=== PATIENT | female | born 1970 | race Caucasian/White ===

== ENCOUNTER → 2023-07-12 08:04 | Outpatient (BNVA) | payer OTHER, SELFPAY | PROVIDERS: Visit Provider Physician Assistant Surgical ==

== ENCOUNTER 2023-07-19 08:30 | Outpatient (AMB) | payer OTHER, SELFPAY ==
--- NOTE | 2023-07-19 08:36 | MHC.OFFVISWM ---
Intake Intake Visit Reasons: (TV) [employer] BMI 32.0 Allergies cephalexin [From Keflex] Adverse Reaction (Intermediate, Verified 07/12/23 10:05) Rash latex Adverse Reaction (Mild, Verified 07/12/23 10:05) Rash Medication List - Last Reconciled 07/19/23 by Elvira Joseph PA-C calcium citrate-vitamin D3 315 mg-5 mcg (200 unit) (Calcium Citrate + D) 1 tab PO BID cholecalciferol (vitamin D3) 125 mcg PO DAILY cyanocobalamin (vitamin B-12) (Vitamin B-12) 1,000 mcg PO DAILY gabapentin 600 mg PO DAILY sertraline 200 mg PO DAILY HPI HPI Comments History of Present Illness Details This is a 52 year old woman who is s/p GBP 2011, pre surgery weight was 304 lbs and lowest weight was 152 lbs (BMI under 25). She has regained 50 lbs back, difficulty maintaing exercise routien. Her goal is to weigh 170. She reports first being concerned about her weight . She has tried multiple methods of weight loss including------- without permanent results. She lives with -------. She works ---days per week She wakes at: bed at Breakfast: Lunch: Dinner: After dinner: Other snacks: Liquids: Alcohol intake: tobacco: marijuana: Exercise: Last mammogram: Last pap smear: control method: KRYSTAL: ESS: GERD: QOL: PFSH Medical History (Updated 07/19/23 @ 08:40 by Elvira Joseph PA-C) Admission for initial breast implant insertion for breast augmentation Surgical History (Updated 07/19/23 @ 08:39 by Elvira Joseph PA-C) Hx of plastic surgery Hx of abdominoplasty Hx of colonoscopy Hx of cholecystectomy History of hysterectomy Hx of tonsillectomy Social History (Updated 07/18/23 @ 13:52 by Rosetta Franklin CMA) Alcohol intake: never Patient Tobacco Use Status: Never used Tobacco Assessment & Plan Assessment & Plan (1) Obesity: Code(s): E66.9 - Obesity, unspecified Plan: This is a yo woman with who will start SWL program to prepare for bariatric surgery. Blood work, h pylori , CXR, ECG, Abd ULS and UGI have been ordered. She is being scheduled for RD and BH initial consultations. She will start SWL classes and watch at 3 classes before her next appt with Ivet. 1. Adequate sleep of 7-8 hours per night discussed 2. Healthy meal plan - stop skipping meals and stop all sweetened drinks All meals/MR's need to take 20 minutes to complete 8am - protein shake with water or UAM 11 am - protein shake with water or UAM 1:30 pm- bar or yogurt 7 pm- dinner of 12 forks lean protein, 12 forks vegetable, 1 serving fruit Exercise - Cardio 4 d week = treadmill at speed 3.0, incline 3-5 - to burn 350 calories 3 d/ wk - circuit room 20/20/40 lbs The importance of avoiding and breast feeding for at least 18 months after bariatric surgery was discussed in the information session and was reinforced today. Pt will purchase body composition analyzer (recommended list given to patient) and weight herself weekly. Next appt with me in 3 weeks. Text me with any questions and weekly weights. Patient is morbidly obese and is not considered stable at this time.?I spent a total of 60 minutes reviewing/updating records, examining the patient and counseling the patient on weight management as detailed above. (2) Depression: Code(s): F32.A - Depression, unspecified (3) Gastric bypass status for obesity: Comment: February 2012, [facility] Code(s): Z98.84 - Bariatric surgery status (4) Cervical stenosis of spine: Code(s): M48.02 - Spinal stenosis, cervical region (5) Peripheral neuropathy: Code(s): G62.9 - Polyneuropathy, unspecified Coding Diagnoses Obesity E66.9 Depression F32.A Gastric bypass status for obesity Z98.84 Cervical stenosis of spine M48.02 Peripheral neuropathy G62.9
--- NOTE | 2023-07-19 08:46 | A.OFFVIS_ITS ---
Intake Intake Visit Reasons: (TV) [employer]PERVIS[employer] BMI 32.0 Allergies cephalexin [From Keflex] Adverse Reaction (Intermediate, Verified 07/12/23 10:05) Rash latex Adverse Reaction (Mild, Verified 07/12/23 10:05) Rash Medication List - Last Reconciled 07/19/23 by Elvira Joseph PA-C calcium citrate-vitamin D3 315 mg-5 mcg (200 unit) (Calcium Citrate + D) 1 tab PO BID cholecalciferol (vitamin D3) 125 mcg PO DAILY cyanocobalamin (vitamin B-12) (Vitamin B-12) 1,000 mcg PO DAILY estradiol 1 patch transdermal 2XW gabapentin 600 mg PO DAILY sertraline 200 mg PO DAILY HPI HPI Comments History of Present Illness Details This is a 52 year old woman who is s/p GBP in 2020. Her highest weight was 302 lbs, lowest weight was 152 lbs ( BMI less thatn 25). Has had about 50 lb regain, Goal is to weigh about 170 lbs. She went to [facility] for revision - due to insurance reasons could not have surgery. Completed 14 months of Phentermine and lost 18 lbs. Pt was diagnosed with anastomotic ulcer about 2 years after GBP due to ibuprofen use for migraines. Treated with EGD cauterization, PPI and sucralfate. No ulcer symptoms afterwards. She lives with her significant other, her father and her son. 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 She wakes at: 5am, bed at 8:30 falls asleep 9:30 pm. Breakfast: 5am coffee with stevia and heavy cream, 2 cups. 7:30 am - Oikos yogurt OR 2 eggs with ch eddar cheese. Lunch: skips lunch1 d/week. 12 pm - (2 cups) toni salad with balsamic vinaigrette with (1/2 c) cheese and 3-4 oz grilled chicken, salmon. Dinner: 7pm - 5 oz salmon, 4 oz (1/2 c)broccoli, may have 1/2 sweet potato. After dinner: no snacks Other snacks: Keto tortillas and PB Skippy (2 TBL) Liquids: ocassional soda, fruit juice diluted with water. Alcohol intake: 1 beer or glass of wine - 1d/ week, tobacco: none, marijuana: gummies for sleep Exercise: none, no membership. Has treadmill, stationary bike at home. Last used 9 months ago. Last mammogram: due in September Last pap smear: no more pap smears control method: not needed, is using estrogen hormone replacement patch KRYSTAL:6 ESS:6 GERD:0 QOL: 77 PFSH Medical History (Updated 07/19/23 @ 08:40 by Elvira Joseph PA-C) Admission for initial breast implant insertion for breast augmentation Surgical History (Updated 07/19/23 @ 08:39 by Elvira Joseph PA-C) Hx of plastic surgery Hx of abdominoplasty Hx of colonoscopy Hx of cholecystectomy History of hysterectomy Hx of tonsillectomy Social History (Updated 07/18/23 @ 13:52 by Rosetta Franklin [facility]) Alcohol intake: never Patient Tobacco Use Status: Never used Tobacco Assessment & Plan Assessment & Plan (1) Obesity: Code(s): E66.9 - Obesity, unspecified Plan: This is a 52 yo woman s/p GBP (anastomotic ulcer 2 years later- treated with cauterization) multipel plastic surgeries and obestiy who will start SWL program for possible revision. Blood work, h pylori , CXR, ECG, Abd ULS and UGI have been ordered. She is being scheduled for RD and DWIGHT initial consultations. She will start SWL classes and watch all classes before her next appt with Ivet. 1. Adequate sleep of 7-8 hours per night discussed 2. Healthy meal plan - stop skipping meals and stop all sweetened drinks All meals/MR's need to take 20 minutes to complete coffee - unsweetened almond milk 8am - protein shake with water or UAM 12 pm - protein shake with water or UAM 3 pm- bar 7 pm- dinner of 8 forks lean protein, 8 forks vegetable, 1/2 serving fruit Exercise - Cardio 4 d week = treadmill at speed 2.8, incline 2-6, (3 minutes) - to burn 350 calories . Goal 2,000 per week. Pt will purchase body composition analyzer (recommended list given to patient) and weight herself weekly. Next appt with Dr Campbell to review UGI/ULS and OR report for candidacy for revision. Text me with any questions and weekly weights this month.. Patient is obese and is not considered stable at this time.?I spent a total of 60 minutes reviewing/updating records, examining the patient and counseling the patient on weight management as detailed above. (2) Depression: Code(s): F32.A - Depression, unspecified (3) Gastric bypass status for obesity: Comment: February 2012, [facility] Code(s): Z98.84 - Bariatric surgery status (4) Cervical stenosis of spine: Code(s): M48.02 - Spinal stenosis, cervical region (5) Peripheral neuropathy: Code(s): G62.9 - Polyneuropathy, unspecified Plan see above Orders: Orders H Pylori Breath Test Today E66.9 - Obesity, unspecified, Z98.84 - Bariatric surgery status Lipid Panel Today E66.9 - Obesity, unspecified, Z98.84 - Bariatric surgery status Comprehensive Met. Panel Today E66.9 - Obesity, unspecified, Z98.84 - Bariatric surgery status Vitamin B1 Today E66.9 - Obesity, unspecified, Z98.84 - Bariatric surgery status Vitamin A Today E66.9 - Obesity, unspecified, Z98.84 - Bariatric surgery status TSH reflex Free T4 Today E66.9 - Obesity, unspecified, Z98.84 - Bariatric surgery status Vitamin D 25-OH Total Today E66.9 - Obesity, unspecified, Z98.84 - Bariatric surgery status US abdomen comp w elastography Today E66.9 - Obesity, unspecified, Z98.84 - Bariatric surgery status XR chest 2V Today E66.9 - Obesity, unspecified, Z98.84 - Bariatric surgery status Insulin Today E66.9 - Obesity, unspecified, Z98.84 - Bariatric surgery status Hemoglobin A1c Today E66.9 - Obesity, unspecified, Z98.84 - Bariatric surgery status Complete Blood Count Auto Diff Today E66.9 - Obesity, unspecified, Z98.84 - Bariatric surgery status IRON PROFILE Today E66.9 - Obesity, unspecified, Z98.84 - Bariatric surgery status Vitamin B12 and Folate Today E66.9 - Obesity, unspecified, Z98.84 - Bariatric surgery status Zinc Today E66.9 - Obesity, unspecified, Z98.84 - Bariatric surgery status C Reactive Protein Today E66.9 - Obesity, unspecified, Z98.84 - Bariatric surgery status Ferritin Today E66.9 - Obesity, unspecified, Z98.84 - Bariatric surgery status ECG 12 lead EKG Today E66.9 - Obesity, unspecified, Z98.84 - Bariatric surgery status FL upper GI w air Today E66.9 - Obesity, unspecified, Z98.84 - Bariatric surgery status Referrals Nutrition/Dietitian Referral E66.9 - Obesity, unspecified, Z98.84 - Bariatric surgery status Behavioral Health Referral E66.9 - Obesity, unspecified, Z98.84 - Bariatric surgery status Telehealth Telehealth Location of provider rendering services: practice address Location of patient: address on file Patient Identification confirmed using: Name, : Yes Telehealth method: video Patient verbally consented to treatment: Yes Patient verbally consented to billing insurance company: Yes Patient informed of any privacy concerns related to visit: Yes Coding Level of Care Code Tele [facility] Pt Level 5 (28037) Diagnoses Obesity E66.9 Depression F32.A Gastric bypass status for obesity Z98.84 Cervical stenosis of spine M48.02 Peripheral neuropathy G62.9
== END 2023-07-19 09:33 | disposition home or self-care (01) ==
LOC: HO.HBS 08:42
PROVIDERS: Visit Provider Physician Assistant
DX: E66.9 Obesity, unspecified (principal); Z68.32 Body mass index [BMI] 32.0-32.9, adult; Z98.84 Bariatric surgery status; M48.02 Spinal stenosis, cervical region
CPT/HCPCS: 99205

== ENCOUNTER → 2023-07-19 08:30 | Outpatient (BNVA) | payer OTHER, SELFPAY | PROVIDERS: Visit Provider Physician Assistant ==

== ENCOUNTER 2023-07-26 10:42 | Outpatient (AMB) | payer OTHER, SELFPAY ==
--- NOTE | 2023-07-26 10:56 | MHC.AMNUTRGE ---
Intake Intake Visit Reasons: (OV) Initial Nutrition SWL + H Pylori Allergies cephalexin [From Keflex] Adverse Reaction (Intermediate, Verified 07/12/23 10:05) Rash latex Adverse Reaction (Mild, Verified 07/12/23 10:05) Rash HPI Nutrition Presentation Details s/p GBP in 2011. Her highest weight was 302 lbs, lowest weight was 152 lbs ( BMI less thatn 25). Has had about 50 lb regain, Goal is to weigh about 170 lbs. She went to [facility] for revision - due to insurance reasons could not have surgery. Had some regain to 218, started phentermine, lowest with phentermine was 192, then stopped after a year and regain to 204#?. She lives with her significant other, her father and her son. 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 Her speciality is in substance abuse, and she works in weight management as well Reason for consult elevated BMI Diet Assmnt Details 8am Premier protein shake in the AM 12-1pm another shake 3-4pm protein bar , has a lot of keto bars 6-7pm protein, veg, minimal carbs doesn't tolerate carbs . Notes she never has felt hunger since the GBP but knows the importance of getting adequate nutrition . She experiences reactive hypoglycemia if she eats carbs without adequate protein. experiences dumping w high carb but seems to tolerate fat OK. She was unable to complete the HPylori test today to due intolerance to the beverage Hydration: adequate We had a long discussion about nutrition, reading labels, balancing out her nutrition, and reviewing various nutrition concepts Dietary counseling reduction Diagnosis Nutrition problem #1 overweight/obesity As related to (etiology) #1 excess energy intake and physical inactivity As evidenced by (sign/symptom) #1 high BMI Monitoring/Goals Nutrition problem monitoring total energy intake, level of knowledge/skill, total PRO intake, total CHO intake and weight Outcome progress progressing Learning/Education Readiness to learn excellent Stages of change action Educational materials provided Yes Most Recent Diabetes Results: No Data to Display [facility] Medical History (Updated 07/19/23 @ 08:40 by Elvira Joseph PA-C) Admission for initial breast implant insertion for breast augmentation Surgical History (Updated 07/19/23 @ 08:39 by Elvira Joseph PA-C) Hx of plastic surgery Hx of abdominoplasty Hx of colonoscopy Hx of cholecystectomy History of hysterectomy Hx of tonsillectomy Social History (Updated 07/18/23 @ 13:52 by Rosetta Franklin CMA) Alcohol intake: never Patient Tobacco Use Status: Never used Tobacco Assessment & Plan Assessment & Plan (1) Obesity (BMI 30-39.9): Code(s): E66.9 - Obesity, unspecified Plan pt is cleared from a nutrition standpoint for bariatric sugery . she will complete her online classes . she was unable to complete hpylori test today Coding Level of Care Code Nutr Indiv Intake (93061) Diagnoses Obesity (BMI 30-39.9) E66.9 Time Spent (min) 60
== END 2023-07-26 12:00 | disposition home or self-care (01) ==
PROVIDERS: Visit Provider Dietitian, Registered
DX: E66.9 Obesity, unspecified (principal)

== ENCOUNTER → 2023-07-26 10:42 | Outpatient (BNVA) | payer OTHER, SELFPAY | PROVIDERS: Visit Provider Surgery | DX: E66.9 Obesity, unspecified (principal); Z71.3 Dietary counseling and surveillance | CPT/HCPCS: 97802 ==

== ENCOUNTER 2023-08-01 12:59 | Outpatient (AMB) | payer OTHER, SELFPAY ==
--- NOTE | 2023-08-01 12:30 | A.OFFWM_ITS ---
Intake Intake Visit Reasons: VIDEO BH Intake Allergies cephalexin [From Keflex] Adverse Reaction (Intermediate, Verified 07/12/23 10:05) Rash latex Adverse Reaction (Mild, Verified 07/12/23 10:05) Rash [facility] Medical History (Updated 07/19/23 @ 08:40 by Elvira Joesph PA-C) Admission for initial breast implant insertion for breast augmentation Surgical History (Updated 07/19/23 @ 08:39 by Elvira Joseph PA-C) Hx of plastic surgery Hx of abdominoplasty Hx of colonoscopy Hx of cholecystectomy History of hysterectomy Hx of tonsillectomy Social History (Updated 07/18/23 @ 13:52 by Rosetta Franklin [facility]) Alcohol intake: never Patient Tobacco Use Status: Never used Tobacco Behavioral Health Assessment Weight Management Therapy Therapy Notes Details Pt is looking to have weight loss surgery revision. She is in therapy with Cristy Tejeda to help with work stress, family issues, loss of family members, father is now living with her. Pt has never been admitted to the hospital for psychiatric reasons and has no history of problems with drugs or alcohol. Presenting Concerns Referral Source provider Reason for referral weight loss surgery evaluation Precipitating Event obesity Living Situation At risk of losing current housing? No Satisfied with current living situation? Yes Comments Pt lives in her home with her fiance, her adult son, and her father. Food/Weight/Diet Expectations of change weight loss and maintenance History/Relationship with food love/hate relationship with food, does not eat when she is stressed, she reported that she loves History/Relationship with weight Pt stated that she has struggled with her weight all of her life. She had gastric bypass at age 40 due to health reasons and overeating. 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 Also her children were in travel hockey and they would be in hotel rooms and eat fast food. History/Relationship with dieting GBP in 2011. lowest was 152lbs. healthiest she looked was about 165lbs [facility] scheduled revision however due insurance reasons had to switch to this program. Binge Eating Do you frequently eat large amounts of food in short periods of time, not feeling physically hungry? No Do you feel out of control when you eat a large amount of food in a short period of time? No Do you eat large amounts of food rapidly and typically alone? No Night Eating Do you wake up at least once during the night to eat? No If you wake up in the night, do you find that it is necessary to eat something in order to fall back asleep? No Do you have little or no appetite in the morning and feel very hungry in the evening, often overeating between dinner and when you go to bed? No Social History Family history and relationship Patient is from 5 years ago. She has two sons , one lives back home now. 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 Employment Employment Status [employer] Wants help to find employment? No Meaningful activities crafting, hiking, kayaking, outdoor activities, would like to get back to walking. Financial Situation Describe current financial situation Comfortable Financial assistance? None Service Service? No Mental Health and Addiction Treatment Current/Past substance abuse? No Current/Past addictive behavior concerns? No Medical and Physical Health Summary Physical exam in the last year? Yes Pain Screening Current pain? Yes Pain in the last few months? No Medications Is the patient compliant with medications? Yes Does the patient have Galdamez Guardian in place? Not applicable Trauma/Abuse History History of trauma? Yes Questionnaires PHQ-9 Over the last 2 weeks, how often have you been bothered by any of the following problems? 1. Little interest or pleasure in doing things: not at all 2. Feeling down, depressed, or hopeless: not at all 3. Trouble falling or staying asleep, or sleeping too much: not at all 4. Feeling tired or having little energy: nearly every day 5. Poor appetite or overeating: not at all 6. Feeling bad about yourself - or that you are a failure or have let yourself or your family down: not at all 7. Trouble concentrating on things, such as reading the newspaper or watching television: not at all 8. Moving or speaking so slowly that other people could have noticed. Or the opposite - being so fidgety or restless that you have been moving around a lot more than usual: not at all 9. Thoughts that you would be better off or of hurting yourself in some way: not at all Total score: 3 Source: Developed by Drs. Dimitrios Mondragon, Yas Carmen, Matthew Pantoja and colleagues, with an educational judy from [employer]. Binge Eating Scale Group 1 A. I don't feel self-conscious about my wt. or body size when I'm with others. B. I feel concerned about how I look to others, but it normally does not make me fell disappointed with myself C. I do get self-conscious about my appearance and wt. which makes me feel disappointed in myself. D. I feel very self-conscious about my wt. and frequently I feel intense shame and disgust for myself. I try to avoid social contacts because of my self- consciousness. Response Group 1: C Group 2 A. I don't have any difficulty eating slowly in the proper manner. B. Although I seem to gobble down foods, I don't end up feeling stuffed because of eating to much. C. At times, I tend to eat quickly and then, I feel uncomfortably full afterwards. D. I have the habit of bolting down my food, without really chewing it. When this happens I usually feel uncomfortably stuffed because I've eaten to much. Response Group 2: C Group 3 A. I feel capable to control my eating urges when I want to. B. I feel like I have failed to control my eating more than the average person. C. I feel utterly helpless when it comes to feeling in control of my eating urges. D. Because I feel so helpless about controlling my eating I have become very desperate about trying to get control. Response Group 3: A Group 4 A. I don't have the habit of eating when I'm bored. B. I sometimes eat when I'm bored, but often I'm able to get busy and get my mind off food. C. I have a regular habit of eating when I'm bored, but occasionally, I can use some other activity to get my mind off eating. D. I have a strong habit of eating when I'm bored. Nothing seems to help me jina ath the habit. Response Group 4: A Group 5 A. I'm usually physically hungry when I eat something. B. Occasionally, I eat something on impulse even though I really am not hungry. C. I have the regular habit of eating foods, that I might not really enjoy, to satisfy a hungry feeling even though physically, I don't need the food. D. Although I'm not physically hungry, I get a hungry feeling in my mouth that only seems to be satisfied when I eat a food, like sandwich, that fills my mouth. Sometimes, when I eat the food to satisfy my mouth hunger, I then spit the food out so I won't gain weight. Response Group 5: A Group 6 A. I don't feel any guilt or self-hate after I overeat. B. After I overeat, occasionally I feel guilt or self-hate. C. Almost all the time I experience strong guilt or self-hate after I overeat. Response Group 6: A Group 7 A. I don't lose total control of my eating when dieting even after periods when I overeat. B. Sometimes when I eat a forbidden food on a diet, I feel like I blew it and eat even more. C. Frequently, I have the habit of saying to myself, I've blown it now, why not go all the way, when I overeat on a diet. When that happens I eat more. D. I have a regular habit of starting a strict diets for myself but I break the diets by going on an eating binge. My life seems to be either a feast or famine. Response Group 7: A Group 8 A. I rarely eat so much food that I feel uncomfortably stuffed afterwards. B. Usually about once a month, I each such a quantity of food, I end up feeling very stuffed. C. I have regular periods during the month when I eat large amounts of food, either at mealtime or at snacks. D. I eat so much food that I regularly feel quite uncomfortable after eating and sometimes a bit nauseous. Response Group 8: A Group 9 A. My level of calorie intake does not go up very high or go down very low on a regular basis. B. Sometimes after I overeat, I will try to reduce my caloric intake to almost nothing to compensate for the excess calories I've eaten. C. I have a regular habit of overeating during the night. It seems that my routine is not to be hungry in the morning but overeat in the evening. D. In my adult years, I have had week-long periods where I practically starve myself. This follows periods when I overeat. It seems I live a life of either feast or famine. Response Group 9: A Group 10 A. I usually am able to stop eating when I want to. I know when enough is enough. B. Every so often, I experience a compulsion to eat which I can't seem to control. C. Frequently, I experience strong urges to eat which I seem unable to control, but at other times I can control my eating urges. D. I feel incapable of controlling urges to eat. I have a fear of not being able to stop eating voluntarily. Response Group 10: A Group 11 A. I don't have any problem stopping eating when I feel full. B. I usually can stop eating when I feel full but occasionally overeat leaving me feeling uncomfortably stuffed. C. I have a problem stopping eating once I start and usually I feel uncomfortably stuffed after I eat a meal. D. Because I have a problem not being able to stop eating when I want, I sometimes have to induce vomiting to relieve my stuffed feeling. Response Group 11: A Group 12 A. I seem to eat just as much when I'm with others, Family social gatherings as when I'm by myself. B. Sometimes, when I'm with other persons, I don't eat as much as I want to eat because I'm self-conscious about my eating. C. Frequently, I eat only a small amount of food when others are present, because I'm very embarrassed about my eating. D. I feel so ashamed about overeating that I pick times to overeat when I know no one will see me. I feel like a closet eater. Response Group 12: A Group 13 A. I eat three meals a day with only an occasional between meal snack. B. I eat 3 meals a day, but I also normally snack between meals. C. When I am snacking heavily, I get in the habit of skipping regular meals. D. There are regular periods when I seem to be continually eating, with no planned meals. Response Group 13: A Group 14 A. I don't think much about trying to control unwanted eating urges. B. At least some of the time, I feel my thoughts are pre-occupied with trying to control my eating urges. C. I feel that frequently I spend much time thinking about how much I ate or about trying not to eat anymore. D. It seems to me that most of my waking hours are pre-occupied by thoughts about eating or not eating. I feel like I'm constantly struggling not to eat. Response Group 14: A Group 15 A. I don't think about food a great deal. B. I have strong craving for food but they last only for brief periods of time. C. I have days when I can't seem to think about anything else but food. D. Most of my days seem to be pre-occupied with thoughts about food. I feel like I live to eat. Response Group 15: A Group 16 A. I usually know whether or not I'm physically hungry. I take the right portion of food to satisfy me. B. Occasionally, I feel uncertain about knowing whether or not I'm physically hu ngry. A these times it's hard to know how much food I should take to satisfy me. C. Even though I might know how many calories I should eat, I don't have any idea what is a normal amount of food for me. Response Group 16: A Binge Eating Score: 4 Score less than 17 Minimal Risk Score between 18-26 Moderate Risk Score between 27-46 High Risk Assessment & Plan Assessment & Plan (1) Depression: Code(s): F32.A - Depression, unspecified (2) Gastric bypass status for obesity: Comment: February 2012, [facility] Code(s): Z98.84 - Bariatric surgery status (3) Obesity: Code(s): E66.9 - Obesity, unspecified Plan Patient does not have any serious barriers or mental health issues. She is cleared for surgery when ready. Telehealth Telehealth Location of provider rendering services: other Location of patient: other Patient Identification confirmed using: Name, : Yes Telehealth method: voice only Patient verbally consented to treatment: Yes Patient verbally consented to billing insurance company: Yes Patient informed of any privacy concerns related to visit: Yes Minutes spent on Phone/Video with Pt.: 45 Coding Level of Care Code Tele Psy Diag Eval (87816) Diagnoses Depression F32.A Gastric bypass status for obesity Z98.84 Obesity E66.9 Time Spent (min) 45
== END 2023-08-01 13:14 | disposition home or self-care (01) ==
LOC: HO.HBST 12:59
PROVIDERS: PCP Nurse Practitioner Pediatrics; Visit Provider Counselor Mental Health
DX: F32.A Depression, unspecified (principal); Z98.84 Bariatric surgery status; E66.9 Obesity, unspecified
CPT/HCPCS: 90791

== ENCOUNTER → 2023-08-01 12:59 | Outpatient (BNVA) | payer OTHER, SELFPAY | PROVIDERS: PCP Nurse Practitioner Pediatrics; Visit Provider Counselor Mental Health ==

== ENCOUNTER 2023-08-08 07:48 | Day surgery (SDC) | payer OTHER, SELFPAY ==
[2023-08-08 10:57] VITALS: BMI 32.0
--- NOTE | 2023-08-08 11:05 | HO.ANESPROP2 ---
[facility] Active Problems Active Problems: All Active Problems (Updated 07/19/23 @ 08:40 by Elvira Joseph PA-C) Peripheral neuropathy (Acute) Cervical stenosis of spine (Acute) Gastric bypass status for obesity (Acute) Depression (Acute) Obesity (Acute) Past Medical History Medical History (Updated 07/19/23 @ 08:40 by Elvira Joseph PA-C) Admission for initial breast implant insertion for breast augmentation Family History Family history of problems with anesthesia: No Surgical History Surgical History (Updated 07/19/23 @ 08:39 by Elvira Joseph PA-C) Hx of plastic surgery Hx of abdominoplasty Hx of colonoscopy Hx of cholecystectomy History of hysterectomy Hx of tonsillectomy History of Problems with Anesthesia: No Social History Social History (Updated 07/18/23 @ 13:52 by Rosetta Franklin CMA) Alcohol intake: never Patient Tobacco Use Status: Never used Tobacco Meds Allergies Allergy/AdvReac Type Severity Reaction Status Date / Time cephalexin [From Keflex] AdvReac Intermediate Rash Verified 07/12/23 10:05 latex AdvReac Mild Rash Verified 07/12/23 10:05 Active Medications: Current Medications Lactated Ringer's (Lr) 1,000 mls @ 80 mls/hr IVCONT .[id number] [facility] Home Medications Medication Instructions Recorded Confirmed Last Taken Type cholecalciferol (vitamin D3) 125 125 mcg PO DAILY 07/12/23 07/19/23 Unknown History mcg (5,000 unit) capsule cyanocobalamin (vitamin B-12) 1,000 mcg PO DAILY 07/12/23 07/19/23 Unknown History 1,000 mcg tablet (Vitamin B-12) gabapentin 600 mg tablet 600 mg PO DAILY 07/12/23 07/19/23 Unknown History sertraline 200 mg capsule 200 mg PO DAILY 07/12/23 07/19/23 Unknown History calcium citrate 315 mg-vitamin D3 1 tab PO BID 07/19/23 07/19/23 Unknown History 5 mcg (200 unit) tablet (Calcium Citrate + D) estradiol 0.025 mg/24 hr 1 patch transdermal 2XW 07/19/23 07/19/23 Unknown History semiweekly transdermal patch Exam Height,Weight and Vital Signs: Height 5 ft 7 in Weight 92.646 kg Airway Mallampati Class: II TM Dist: >3cm Neck ROM: Full Heart: rrr Lungs: cta Assessment and Plan Assessment Anesthesia Assessment: Anesthesia Plan Discussed and Chart Reviewed Final Anesthetic Review Family History of Problems with Anesthesia: No History of Problems with Anesthesia: No NPO: Yes ASA Class: II Final Preanesthetic Review: No Changes in Pt Med Stat, Meds/Allgs Chart Reviewed and Consent Obtained/Reviewed Patient Risk: Low Procedure Risk: Intermediate Anesthetic Plan Anesthetic Plan: MAC: Disposition: Standard PACU
[2023-08-08 11:08] VITALS: BP 111/64; PULSE 67; RESP 16; TEMP 36; O2SAT 99
[2023-08-08] MEDS: Lactated Ringers 1,000 ML 80 ML IVCONT (11:29)
--- NOTE | 2023-08-08 11:48 | PM.OP ---
Brief Operative Note Date of Service: 08/08/23 Pre-op diagnosis: Inadequate weight loss, post-gastric bypass anatomy Post-op diagnosis: same Procedure: PROCEDURE DATE: 08/08/2023 PREOPERATIVE DIAGNOSIS: Morbid obesity, s/p gastric bypass POSTOPERATIVE DIAGNOSIS: ?Same as above. 1) Large and redundant gastric pouch, 2) Candy cane gastro-jejunostomy, 3) small diaphragmatic hernia PROCEDURE: [id number] with biopsies Surgeon: ?Luis Enrique Barrios M.D.. Ph.D. Complaint Supervisor: ?None ? Anesthesia: IV sedation Estimated blood loss: ?Minimal FINDINGS AND PROCEDURE: ? OPERATIVE INDICATIONS: ?The patient is a 52 year old female known to me who underwent a laparoscopic gastric bypass elsewhere. The patient had inadequate weight loss so far.? Based on this information I recommended an upper endoscopy to evaluate the gastric bypass anatomy.?Risks and complications of the surgery were discussed with the patient in advance particularly the possibility of perforation or bleeding that may require surgical intervention. The patient understood the risks and was in agreement with the plan. ? PROCEDURE: After informed consent was obtained by the patient, the patient was ?transferred to the Operating Room and was placed in the supine position.? After successful induction of IV sedation, a mouth block was placed and the patient was placed in the left lateral decubitus position. An upper endoscopy was performed next, the oropharynx and esophagus appeared within the normal limits. There was a 3-4cm hiatal hernia.? The z-line was smooth. Two biopsies were obtained from the distal esophagus 2-3 cm proximal to the GE junction and two biopsies from the GE junction. The gastric pouch was entered. It was significantly enlarged with lateral redundancy. In fact, it's size permitted retroflexion of the scope which normally is not possible after gastric bypass. There was no gastritis and the gastrojejunostomy was patent. A biopsy was obtained from the gastric pouch. No significant bleeding was noted from any of the biopsy sites. There was no anastomotic ulcer.? At that point the scope was advanced into the proximal small intestine (proximal Romain limb) up to 60cm from incisors which appeared to be normal as well. The patient also had an elongated blind end of the Romain limb neasuring between 3-4cm in length. The Romain limb and the pouch were decompressed and the scope was withdrawn from the patient's mouth. The patient was awaken and was transferred in stable condition to the Recovery Room for further care. I was present and performed all steps of the procedure. There were no residents to assist with this case. Luis Enrique Barrios M.D., Ph.D. Surgeon: Sav Barrios MD Anesthesia: MAC Was an Complaint Supervisor used for this Procedure?: No Estimated blood loss (mL): 0 IV fluids (mL): 400 Urine output (mL): 0 (No Fry to record output) Pathology: other (1) gastric pouch, 2) GE junction x2, 3) distal esophagus x2) Condition: stable Disposition: PACU
--- NOTE | 2023-08-08 11:58 | P.CONAN_ITS ---
[facility] Active Problems Active Problems: All Active Problems (Updated 07/19/23 @ 08:40 by Elvira Joseph PA-C) Peripheral neuropathy (Acute) Cervical stenosis of spine (Acute) Gastric bypass status for obesity (Acute) Depression (Acute) Obesity (Acute) Past Medical History Medical History (Updated 07/19/23 @ 08:40 by Elvira Joseph PA-C) Admission for initial breast implant insertion for breast augmentation Family History Family history of problems with anesthesia: No Surgical History Surgical History (Updated 07/19/23 @ 08:39 by Elvira Joseph PA-C) Hx of plastic surgery Hx of abdominoplasty Hx of colonoscopy Hx of cholecystectomy History of hysterectomy Hx of tonsillectomy History of Problems with Anesthesia: No Social History Social History (Updated 07/18/23 @ 13:52 by Rosetta Franklin CMA) Alcohol intake: never Patient Tobacco Use Status: Never used Tobacco Meds Allergies Allergy/AdvReac Type Severity Reaction Status Date / Time cephalexin [From Keflex] AdvReac Intermediate Rash Verified 07/12/23 10:05 latex AdvReac Mild Rash Verified 07/12/23 10:05 Active Medications: Current Medications Lactated Ringer's (Lr) 1,000 mls @ 80 mls/hr IVCONT .[id number] [facility] Last Admin: 08/08/23 11:29 Dose: 80 mls/hr Home Medications Medication Instructions Recorded Confirmed Last Taken Type cholecalciferol (vitamin D3) 125 125 mcg PO DAILY 07/12/23 07/19/23 Unknown History mcg (5,000 unit) capsule cyanocobalamin (vitamin B-12) 1,000 mcg PO DAILY 07/12/23 07/19/23 Unknown History 1,000 mcg tablet (Vitamin B-12) gabapentin 600 mg tablet 600 mg PO DAILY 07/12/23 07/19/23 Unknown History sertraline 200 mg capsule 200 mg PO DAILY 07/12/23 07/19/23 Unknown History calcium citrate 315 mg-vitamin D3 1 tab PO BID 07/19/23 07/19/23 Unknown History 5 mcg (200 unit) tablet (Calcium Citrate + D) estradiol 0.025 mg/24 hr 1 patch transdermal 2XW 07/19/23 07/19/23 Unknown History semiweekly transdermal patch Exam Height,Weight and Vital Signs: Height 5 ft 7 in Weight 92.646 kg Last Vital Signs Temp 96.8 F 08/08/23 11:08 Pulse 67 08/08/23 11:08 Resp 16 08/08/23 11:08 BP 111/64 08/08/23 11:08 Pulse Ox 99 08/08/23 11:08 O2 Del Method Room Air 08/08/23 11:08 Airway Mallampati Class: II TM Dist: >3cm Neck ROM: Full Heart: rrr Lungs: cta Assessment and Plan Assessment Anesthesia Assessment: Anesthesia Plan Discussed and Chart Reviewed Final Anesthetic Review Family History of Problems with Anesthesia: No History of Problems with Anesthesia: No NPO: Yes ASA Class: III Final Preanesthetic Review: No Changes in Pt Med Stat, Meds/Allgs Chart Reviewed and Consent Obtained/Reviewed Patient Risk: Intermediate Procedure Risk: Intermediate Anesthetic Plan Anesthetic Plan: MAC: Disposition: Standard PACU
--- NOTE | 2023-08-08 12:00 | MHC.SHP ---
Pre-Procedural Eval Section A - 24 Hr Update-Section A only Date of Service: 08/08/23 The patient is an INPATIENT: No The patient has been examined within 24 hours of the surgical procedure. The History & Physical has been completed within 30 days and I have reviewed it.: Yes Section B - Complete if H&P > 30 days Chief Complaint: Bariatric surgery status Relevant Family History (Specify if Yes): No Relevant Social History: None Present Medications: None Medical History: No relevant PMH History of Previous Operations: Relevant previous surgery/procedure and date(s) (laparoscopic gastric bypass) Allergies: Allergies Allergy/AdvReac Type Severity Reaction Status Date / Time cephalexin [From Keflex] AdvReac Intermediate Rash Verified 07/12/23 10:05 latex AdvReac Mild Rash Verified 07/12/23 10:05 Review of Systems Sugical H&P ROS: Negative: Constitution, Cardiovascular, Respiratory, Neurological, Psychiatric, Hem-Onc, Allergic/Immunologic, Gastrointestinal, Genitourinary, Musculoskeletal, Integumentary, Endocrine and Eyes/Ears/Nose/Throat Exam Surgical H&P Exam: Normal: HEENT, Normal: Heart, Normal: Lungs, Normal: Extremities, Normal: Abdomen, Normal: Skin and Normal: Neurological Plan Diagnosis/Plan: Unchanged (EGD to assess etiology of weight gain in relation to gastric bypass anatomy. Risks of bleeding and perforation were discussed with the patient and she is in agreement with the plan.) I have reviewed the history and physical and performed a pertinent physical examination on my patient. No changes have occurred unless specified. Time Spent With Patient Time: Total time managing care of this patient today ____ minutes.
[2023-08-08 12:28] VITALS: BP 96/52; PULSE 64; RESP 16; TEMP 36.8; O2SAT 98
[2023-08-08 12:43] VITALS: BP 105/66; PULSE 60; RESP 16; O2SAT 99
[2023-08-08 12:57] VITALS: BP 101/65; PULSE 68; RESP 16; TEMP 36.2; O2SAT 99
[2023-08-08 13:12] VITALS: BP 115/67; PULSE 53; RESP 16; TEMP 36.2; O2SAT 99
== END 2023-08-08 13:54 | disposition home or self-care (01) ==
PROVIDERS: Visit Provider Surgery
PROC: 0DJ08ZZ Inspection of Upper Intestinal Tract, Via Natural or Artificial Opening Endoscopic (ICD-10-PCS; CPT 43235; principal; 2023-08-08 13:20)
DX: K95.89 Other complications of other bariatric procedure (principal); K91.1 Postgastric surgery syndromes; R63.8 Other symptoms and signs concerning food and fluid intake; K44.9 Diaphragmatic hernia without obstruction or gangrene; Z98.84 Bariatric surgery status; E66.9 Obesity, unspecified; Z68.32 Body mass index [BMI] 32.0-32.9, adult; M48.02 Spinal stenosis, cervical region; G62.9 Polyneuropathy, unspecified; F32.A Depression, unspecified; Z79.899 Other long term (current) drug therapy; Z88.1 Allergy status to other antibiotic agents; Z91.040 Latex allergy status; Z90.49 Acquired absence of other specified parts of digestive tract; Z98.890 Other specified postprocedural states
CPT/HCPCS: 43239; 88305; 88313; 88342; J2250; J2704

== ENCOUNTER → 2023-08-08 07:48 | Outpatient (BNV) | payer OTHER, SELFPAY | PROVIDERS: Visit Provider Surgery | DX: K95.89 Other complications of other bariatric procedure (principal); Z98.84 Bariatric surgery status; E66.01 Morbid (severe) obesity due to excess calories; Z68.32 Body mass index [BMI] 32.0-32.9, adult | CPT/HCPCS: 43239 ==

== ENCOUNTER 2023-08-08 08:12 | Outpatient (REF) | payer OTHER, SELFPAY ==
--- NOTE | ~2023-08-08 | XR_ITS ---
EXAMINATION: XR CHEST CLINICAL INFORMATION: Obesity, unspecified COMPARISON: None available. TECHNIQUE: 2 views of the chest were obtained. FINDINGS: No significant abnormality is noted involving the heart, lungs, mediastinum, bony thorax or soft tissues. XR/XR chest 2V IMPRESSION: No acute cardiopulmonary disease.
== END 2023-08-08 08:13 | disposition home or self-care (01) ==
LOC: HO.XRAY 08:12
PROVIDERS: Visit Provider Physician Assistant
DX: E66.9 Obesity, unspecified (principal); Z98.84 Bariatric surgery status
CPT/HCPCS: 71046

== ENCOUNTER 2023-08-09 07:54 | Outpatient (REF) | payer OTHER, SELFPAY ==
--- NOTE | ~2023-08-09 | US_ITS ---
EXAMINATION: US COMPLETE ABDOMEN WITH LIVER ELASTOGRAPHY CLINICAL INFORMATION: Obesity. COMPARISON: None available. TECHNIQUE: Real-time imaging of the abdominal viscera. Noninvasive ultrasound liver fibrosis assessment is performed using Corky ElastPQ point quantification shear wave elastography (2D-SWE) with a C5-2 MHz transducer. Multiple elastography samples are obtained. FINDINGS: PANCREAS: Largely obscured by overlapping bowel gas. ABDOMINAL AORTA: The proximal, middle, and distal aortic segments are normal in caliber. INFERIOR VENA CAVA: Visualized portions are normal. LIVER: There is mild hepatomegaly. The liver demonstrates normal contour and echogenicity. No focal lesion or intrahepatic biliary duct dilatation. The right lobe measures 18.0 cm in length. The left lobe measures 8.1 cm in length. Portal flow is towards the liver (hepatopetal). Shear wave liver elastography median stiffness is 1.33 m/s (reference: normal median stiffness is 1.3 m/s or less). IQR/median stiffness to assess sampling precision is 0.02 (reference: good quality data set is IQR/median stiffness of 0.15 or less). GALLBLADDER: Surgically absent. COMMON BILE DUCT: Normal in caliber measuring 0.5 cm in diameter. RIGHT KIDNEY: Normal. No hydronephrosis. No renal calculi or focal parenchymal lesions. The kidney measures 10.7 cm in maximum dimension. LEFT KIDNEY: Normal. No hydronephrosis. No renal calculi or focal parenchymal lesions. The kidney measures 10.1 cm in maximum dimension. SPLEEN: Normal. The spleen measures 11.9 cm in maximum dimension. FREE FLUID: None. US/US abdomen comp w elastography IMPRESSION: 1. There is mild hepatomegaly. 2. Liver elastography: In the absence of other known clinical signs, measurements rule out compensated advanced chronic liver disease. If there are known clinical signs, further testing may be needed for confirmation. 3. The gallbladder is surgically absent. REFERENCE: Society of Radiologists in Ultrasound Liver Stiffness Thresholds (2020): LIVER STIFFNESS THRESHOLDS: *Liver Stiffness equal or less than 1.3 m/s: High probability of being normal. *Liver Stiffness less than 1.7 m/s: In the absence of other known clinical signs, rules out compensated advanced chronic liver disease. *Liver Stiffness 1.7-2.1 m/s: Suggestive of compensated advanced chronic liver disease but need further test for confirmation. *Liver Stiffness over 2.1 m/s: Rules in compensated advanced chronic liver disease. *Liver Stiffness over 2.4 m/s: Suggestive of clinically significant portal hypertension. QUALITY OF DATA SET: *IQR/Median value equal or less than 0.15 implies a quality data set. *IQR/Median value over 0.15 implies a poor quality data set. SIGNIFICANT CHANGE FROM PRIOR EXAM: Significant change if liver stiffness measurement is 10% or greater from prior exam. OTHER CONSIDERATIONS: The stage of liver fibrosis may be overestimated in the setting of acute hepatitis, liver inflammation, elevated liver function tests, hepatic vascular congestion, obstructive cholestasis, non-fasting state, and infiltrative diseases such as amyloidosis and lymphoma. In some patients with NAFLD, the liver stiffness thresholds for compensated advanced chronic liver disease may be lower. In causes other than viral hepatitis and NAFLD, liver stiffness thresholds are not well established.
== END 2023-08-09 07:55 | disposition home or self-care (01) ==
LOC: HO.US 07:54
PROVIDERS: Visit Provider Physician Assistant
DX: E66.9 Obesity, unspecified (principal); Z98.84 Bariatric surgery status
CPT/HCPCS: 76700; 76981

== ENCOUNTER 2023-08-17 07:58 | Outpatient (AMB) | payer OTHER, SELFPAY ==
--- NOTE | 2023-08-17 09:25 | A.OFFVIS_ITS ---
Intake VS Expanded 08/17/23 09:46 Height 5 ft 7 in Weight 198 lb 8 oz BMI 31.1 Body Fat % 39.5 Body Fat Mass 78.5 Fat Free Mass 120.2 Visceral Fat Rating 13 Body Water % 41.5 Body Water Mass 82.5 Basal Metabolic Rate/Score 1,536 Intake Visit Reasons: TV Transfer / Elvira Allergies cephalexin [From Keflex] Adverse Reaction (Intermediate, Verified 08/17/23 0 9:25) Rash latex Adverse Reaction (Mild, Verified 08/17/23 09:25) Rash Medication List - Last Reconciled 08/17/23 by Sav Barrios MD calcium citrate-vitamin D3 315 mg-5 mcg (200 unit) (Calcium Citrate + D) 1 tab PO BID cholecalciferol (vitamin D3) 125 mcg PO DAILY cyanocobalamin (vitamin B-12) (Vitamin B-12) 1,000 mcg PO DAILY estradiol 1 patch transdermal 2XW gabapentin 600 mg PO DAILY iron,carbonyl-vitamin C 65 mg iron- 125 mg (Vitron-C) 1 tab PO DAILY sertraline 200 mg PO DAILY HPI TV Transfer / HPI Details Start time: 9.00am, End time: 10am ?I spent 50 minutes speaking with the patient on the phone plus an additional 10 minutes reviewing and updating records for a total of 60 minutes HPI Comments History of Present Illness Details Overall weight loss: 5.4lbs, or 2.64% TBWL Is doing 2 premade Premier protein shakes, 2 Zone Perfect protein bars and one meal (8 forks of protein and 8 forks of salad or vegetables) Exercise: walking 2 miles per day [facility] Medical History (Updated 08/17/23 @ 09:50 by Sav Barrios MD) Admission for initial breast implant insertion for breast augmentation Surgical History (Updated 07/19/23 @ 08:39 by Elvira Jospeh PA-C) Hx of plastic surgery Hx of abdominoplasty Hx of colonoscopy Hx of cholecystectomy History of hysterectomy Hx of tonsillectomy Social History (Updated 07/18/23 @ 13:52 by Rosetta Franklin CMA) Alcohol intake: never Patient Tobacco Use Status: Never used Tobacco Assessment & Plan Assessment & Plan (1) Obesity: Code(s): E66.9 - Obesity, unspecified Qualifiers: Obesity type: due to excess calories Obesity classification: adult class 1 (BMI 30 - 34.9) Serious obesity comorbidity presence: without serious comorbidity Body mass index: BMI 31.0-31.9 Qualified Code(s): E66.09 - Other obesity due to excess calories; Z68.31 - Body mass index [BMI] 31.0-31.9, adult Plan: 1.? Plan for lap sleeve gastrectomy of the gastric pouch. If diaphragmatic or ventral hernias are present at time of surgery, these will be repaired laparoscopically as well. Risks and complications were discussed in detail including possible conversion to an open procedure, anastomotic leak, bleeding requiring transfusion, small bowel obstruction, , DVT and pulmonary embolism, cardiac, or pulmonary complications, as remote computer terminal operator complications such as anastomotic ulcer, insufficient weight loss and vitamin deficiencies. I emphasized the importance of close follow-up, adherence to instructions and good communication. 2. Nutritional counseling. Start with 2 premade PREMIER protein shakes (mix 5oz of Premier shake with 3oz low fat unsweetened almond milk each) at 6am-8am and 10am-12pm, 2 protein bars (Zone Perfect protein bars, buy at [email or web address], ?[employer], [employer], or [employer]) at 1pm-3pm and 4pm-6pm, dinner at 7pm (8 forks of protein and 8 forks of salad/vegetables). So you do 2 protein shakes, 2 protein bars and one meal per day. Meal to include lean meat (beef, fish, pork, turkey, chicken), or maori yogurt, or egg whites, or beans with a salad with olive oil and fruits (berries, pears, apples, kiwi). Avoid salt, breads, potatoes, rice, pasta, desserts. 3. Each shake would be drunk slowly, like coffee in a period of 2 hours. 4. Cut each bar in 4 pieces and eat each piece in 30min ?to make each bar last 2 hours. 5. I emphasized the importance of measuring accurately the food portion and measure it when serving the food in plate 6. The meal portions include 8 full-size forks of meat and 8 full-size forks of salad. You always eat the meat portion but you can replace up to 4 forks for salad/vegetables with rice, potatoes or pasta, or a fruit ?if you like. The less you do it the better weight loss will be. 7. One full-size fork is what it can be scooped on the fork without falling aside and not what can be bit with the fork. Use regular forks like those you find in a typical restaurant. 8.? Please send me weight measurements weekly. Always include your diet and exercise plan. 9. Start treadmill with an incline of 2.0 and speed of 3.0. Increase incline by 1 every 3 min to a max incline of 8.0, stay 3min at 8.0 and then return to 2.0 and repeat same steps until calorie goal is met. Goal is to burn 2000 calories per week on exercise, which means either 300 calories daily, or 400 calories 5 days per week, or 500 calories 4 days per week, or 650 calories 3 days per week. 10. Goal is to lose at least 1.5-2lbs per week 11. Goal to lose 10% of your weight before surgery, which is about 20lbs. Ultimate weight goal: 184lbs before surgery 12. Please follow the diet plan exactly without any change. If you don't like something about the plan or you feel hungry you need to communicate with me so I can help you revise the plan. You should not change the plan yourself. Medications: New iron,carbonyl-vitamin C 65 mg iron- 125 mg (Vitron-C) swallow whole; do not chew/break/dissolve/open 1 tab PO DAILY 90 tabs 0RF E61.1 - Iron deficiency Telehealth Telehealth Location of provider rendering services: practice address Location of patient: address on file Patient Identification confirmed using: Name, : Yes Telehealth method: voice only Patient verbally consented to treatment: Yes Patient verbally consented to billing insurance company: Yes Patient informed of any privacy concerns related to visit: Yes Minutes spent on Phone/Video with Pt.: 60 Coding Level of Care Code Tele Est Pt Level 5 (57940) Diagnoses Class 1 obesity due to excess calories without serious comorbidity with body mass index (BMI) of 31.0 to 31.9 in adult E66.09; Z68.31 Obesity type: due to excess calories Obesity classification: adult class 1 (BMI 30 - 34.9) Serious obesity comorbidity presence: without serious comorbidity Body mass index: BMI 31.0-31.9 Time Spent (min) 60
[2023-08-17 09:46] VITALS: BMI 31.1
== END 2023-08-17 10:00 | disposition home or self-care (01) ==
LOC: HO.HBS 07:58
PROVIDERS: Visit Provider Surgery
DX: E66.09 Other obesity due to excess calories (principal); Z68.31 Body mass index [BMI] 31.0-31.9, adult
CPT/HCPCS: 99215; 99417

== ENCOUNTER → 2023-08-17 07:58 | Outpatient (BNVA) | payer OTHER, SELFPAY | PROVIDERS: Visit Provider Surgery ==

== ENCOUNTER 2023-09-20 10:17 | Outpatient (REF) | payer OTHER, MEDICAID, SELFPAY ==
--- NOTE | ~2023-09-20 | FL_ITS ---
EXAMINATION: XR FLUOROSCOPY UPPER GI WITH AIR CLINICAL INFORMATION: Preop evaluation prior to bariatric surgery. History of Romain-en-Y gastric bypass COMPARISON: None TECHNIQUE: Fluoroscopic air contrast upper GI examination was performed utilizing standard techniques with thin and thick barium and effervescent granules. Numerous spot images were obtained. FINDINGS: Images of the oropharynx and hypopharynx demonstrate normal swallow mechanism with normal epiglottic inversion and soft palate elevation. No tracheal penetration, glottic or subglottic aspiration identified. No nasopharyngeal reflux present. Hypopharyngeal structures appear normal without evidence of mass or diverticulum. There is mild cricopharyngeal achalasia present. Dual and single contrast images of the esophagus demonstrate normal caliber, contour, and mucosal pattern. No evidence of stricture, mass, or ulcerations identified. Esophageal peristalsis was normal. A small type I hiatal hernia is present, involving the superior pouch. No significant gastroesophageal reflux was seen during the course of the examination and on reflux views. Dual contrast and single contrast images of the stomach demonstrated a contour consistent with prior history of Romain-en-Y gastric bypass. The mucosal pattern is normal, without without evidence of mass, ulceration, or other abnormality. The gastrojejunostomy is widely patent. Contrast freely passed into the alimentary limb without delay. Proximal jejunal folds appear mildly thickened just beyond the gastrojejunal anastomosis. The imaged proximal jejunum has a normal fold pattern and caliber. FLUOROSCOPY TIME: 2 minutes 32 seconds Number of Spot Images: 6 Number of Cine: 12 DOSE AREA PRODUCT: [id number] uGy-m2 (microgray-meter squared) FL/FL upper GI w air IMPRESSION: 1. Mild cricopharyngeal achalasia. 2. Small type I hiatal hernia involving the superior pouch. 3. Status post Romain-en-Y gastric bypass. The gastrojejunostomy is widely patent. No extravasation of contrast. 4. Jejunal folds appear mildly thickened just beyond the gastrojejunal anastomosis. This procedure was performed by Silvestre Barillas PA-C, and supervised by Dr. Jeter
== END 2023-09-20 10:18 | disposition home or self-care (01) ==
LOC: HO.XRAY 10:17
PROVIDERS: Visit Provider Physician Assistant
DX: K21.9 Gastro-esophageal reflux disease without esophagitis (principal); E66.9 Obesity, unspecified; Z98.84 Bariatric surgery status
CPT/HCPCS: 74246

== ENCOUNTER → 2023-09-20 10:18 | Outpatient (BNV) | payer OTHER, SELFPAY | PROVIDERS: Visit Provider Physician Assistant Surgical | DX: E66.9 Obesity, unspecified (principal); Z98.84 Bariatric surgery status; Z01.818 Encounter for other preprocedural examination | CPT/HCPCS: 74246 ==

== ENCOUNTER 2023-09-24 08:44 | Outpatient (AMB) | payer MEDICAID, SELFPAY ==
--- NOTE | 2023-09-23 11:38 | MHC.OFFVISWM ---
VS Expanded 09/23/23 11:39 Height 5 ft 7 in Weight 194 lb BMI 30.4 Body Fat % 38.4 Body Fat Mass 74.4 Fat Free Mass 119.6 Visceral Fat Rating 13 Body Water % 42.3 Body Water Mass 82 Basal Metabolic Rate/Score 1,196 Intake Visit Reasons: TV Follow Up SWL Allergies cephalexin [From Keflex] Adverse Reaction (Intermediate, Verified 08/17/23 09:25) Rash latex Adverse Reaction (Mild, Verified 08/17/23 09:25) Rash HPI HPI TV Follow Up SWL: Details: Start time: 7.58am, End time: 8.18am ?I spent 15 minutes speaking with the patient on the phone plus an additional 5 minutes reviewing and updating records for a total of 20 minutes HPI Comments Details: Overall weight loss: 10.2lbs, or 5% TBWL Is doing 2 premade Premier protein shakes, 2 Zone Perfect protein bars and one meal (8 forks of protein and 8 forks of salad or vegetables) Exercise: treadmill only on weekends PFSH Medical History (Updated 08/17/23 @ 09:50 by Sav Barrios MD) Admission for initial breast implant insertion for breast augmentation Surgical History (Updated 07/19/23 @ 08:39 by Elvira Joseph PA-C) Hx of plastic surgery Hx of abdominoplasty Hx of colonoscopy Hx of cholecystectomy History of hysterectomy Hx of tonsillectomy Social History (Updated 07/18/23 @ 13:52 by Rosetta Franklin CMA) Alcohol intake: never Patient Tobacco Use Status: Never used Tobacco Physical Exam Vital Signs: BMI result Body Mass Index 30.4 Telehealth Telehealth Telehealth Platform: Telephone Location of provider rendering services: practice address Location of patient: address on file Patient Identification confirmed using: Name, : Yes Telehealth method: voice only Patient verbally consented to treatment: Yes Patient verbally consented to billing insurance company: Yes Patient informed of any privacy concerns related to visit: Yes Minutes spent on Phone/Video with Pt.: 30 Assessment & Plan Assessment & Plan (1) Obesity: Code(s): E66.9 - Obesity, unspecified Category: Medical Qualifiers: Body mass index: BMI 31.0-31.9 Obesity classification: adult class 1 (BMI 30 - 34.9) Obesity type: due to excess calories Serious obesity comorbidity presence: without serious comorbidity Qualified Code(s): E66.09 - Other obesity due to excess calories; Z68.31 - Body mass index [BMI] 31.0-31.9, adult Plan: 1. Please change nutritional plan to 2 Premier shakes (5oz of Premier with 3oz almond milk) at 6-8am and 10-12pm, 2 Zone Perfect protein bars at 1pm-3pm and 4pm-6pm, dinner at 7pm (8 forks of protein and 8 forks of salad or vegetables). If hungry, please do another half protein bar after dinner 2. Use the treadmill on weekends for 500 calories per day and the 4 days use the treadmill for 200 calories per day. The weekends you can burn the 500 calories all together or split it in 250 twice a day 3. Continue to send me weight measurements weekly on Fridays
[2023-09-23 11:39] VITALS: BMI 30.4
== END 2023-09-24 09:05 | disposition home or self-care (01) ==
LOC: HO.HBS 08:44
PROVIDERS: Visit Provider Surgery
DX: E66.09 Other obesity due to excess calories (principal); Z68.31 Body mass index [BMI] 31.0-31.9, adult
CPT/HCPCS: 99214

== ENCOUNTER → 2023-09-24 08:44 | Outpatient (BNVA) | payer OTHER, SELFPAY | PROVIDERS: Visit Provider Surgery ==

== ENCOUNTER 2023-10-15 08:10 | Outpatient (AMB) | payer MEDICAID, SELFPAY ==
--- NOTE | 2023-10-15 09:51 | MHC.OFFVISWM ---
VS Expanded 10/15/23 10:05 Height 5 ft 7 in Weight 195 lb BMI 30.5 Body Fat % 38.7 Body Fat Mass 75.4 Fat Free Mass 119.6 Visceral Fat Rating 13 Body Water % 42.1 Body Water Mass 82 Basal Metabolic Rate/Score 1,547 Intake Visit Reasons: TV Follow Up SWL Allergies cephalexin [From Keflex] Adverse Reaction (Intermediate, Verified 08/17/23 09:25) Rash latex Adverse Reaction (Mild, Verified 08/17/23 09:25) Rash HPI HPI TV Follow Up SWL: Details: Start time: 9.50am, End time: 10.10am ?I spent 15 minutes speaking with the patient on the phone plus an additional 5 minutes reviewing and updating records for a total of 20 minutes HPI Comments Details: Overall weight loss: 9.2lbs Is doing 2 protein shakes (5oz Premier shakes and 3oz almond milk), 2 Pure protein bars at 4-6pm and one meal (8 forks of protein and 8 forks of salad or vegetables) Exercise: outside biking x7/wk for 280 calories and treadmill for 350 calories x4/wk PFSH Medical History (Updated 08/17/23 @ 09:50 by Sav Barrios MD) Admission for initial breast implant insertion for breast augmentation Surgical History (Updated 07/19/23 @ 08:39 by Elvira Joseph PA-C) Hx of plastic surgery Hx of abdominoplasty Hx of colonoscopy Hx of cholecystectomy History of hysterectomy Hx of tonsillectomy Social History (Updated 07/18/23 @ 13:52 by Rosetta Franklin CMA) Alcohol intake: never Patient Tobacco Use Status: Never used Tobacco Telehealth Telehealth Telehealth Platform: Telephone Location of provider rendering services: practice address Location of patient: address on file Patient Identification confirmed using: Name, : Yes Telehealth method: voice only Patient verbally consented to treatment: Yes Patient verbally consented to billing insurance company: Yes Patient informed of any privacy concerns related to visit: Yes Minutes spent on Phone/Video with Pt.: 20 Assessment & Plan Assessment & Plan (1) Obesity: Code(s): E66.9 - Obesity, unspecified Category: Medical Qualifiers: Obesity type: due to excess calories Obesity classification: adult class 1 (BMI 30 - 34.9) Serious obesity comorbidity presence: without serious comorbidity Body mass index: BMI 31.0-31.9 Qualified Code(s): E66.09 - Other obesity due to excess calories; Z68.31 - Body mass index [BMI] 31.0-31.9, adult Plan: 1. Continue same nutritional plan of 2 protein shakes (5oz Premier shakes and 3oz almond milk), 2 Pure protein bars at 4-6pm and one meal (8 forks of protein and 8 forks of salad or vegetables) 2. Exercise: continue outside biking x7/wk for 280 calories and treadmill for 350 calories x4/wk. 3. Continue to send weight measurements weekly on Fridays
[2023-10-15 10:05] VITALS: BMI 30.5
== END 2023-10-15 10:11 | disposition home or self-care (01) ==
LOC: HO.HBS 08:10
PROVIDERS: Visit Provider Surgery
DX: E66.09 Other obesity due to excess calories (principal); Z68.30 Body mass index [BMI] 30.0-30.9, adult
CPT/HCPCS: 99442

== ENCOUNTER → 2023-10-15 08:10 | Outpatient (BNVA) | payer MEDICAID, SELFPAY | PROVIDERS: Visit Provider Surgery ==

== ENCOUNTER 2023-11-12 08:14 | Outpatient (AMB) | payer OTHER, SELFPAY ==
--- NOTE | 2023-11-12 09:28 | A.OFFVIS_ITS ---
VS Expanded 11/12/23 09:35 Height 5 ft 7 in Weight 189 lb BMI 29.6 Body Fat % 37.8 Body Fat Mass 70.4 Fat Free Mass 118.6 Visceral Fat Rating 12 Body Water % 43 Body Water Mass 81.2 Basal Metabolic Rate/Score 1,543 Intake Visit Reasons: TV Follow Up SWL Allergies cephalexin [From Keflex] Adverse Reaction (Intermediate, Verified 08/17/23 09:25) Rash latex Adverse Reaction (Mild, Verified 08/17/23 09:25) Rash HPI HPI TV Follow Up SWL: Details: Start time: 9.22am, End time: 9.42am ?I spent 15 minutes speaking with the patient on the phone plus an additional 5 minutes reviewing and updating records for a total of 20 minutes HPI Comments Details: weight loss: 15.2lbs, or 7.44% Is doing 2 protein shakes (5oz Premier shakes and 3oz almond milk), 2 Pure protein bars at 4-6pm and one meal (8 forks of protein and 8 forks of salad or vegetables) Exercise: treadmill for 300-450 calories x7/wk PFSH Medical History (Updated 08/17/23 @ 09:50 by Sav Barrios MD) Admission for initial breast implant insertion for breast augmentation Surgical History (Updated 07/19/23 @ 08:39 by Elvira Joseph PA-C) Hx of plastic surgery Hx of abdominoplasty Hx of colonoscopy Hx of cholecystectomy History of hysterectomy Hx of tonsillectomy Social History (Updated 07/18/23 @ 13:52 by Rosetta Franklin CMA) Alcohol intake: never Patient Tobacco Use Status: Never used Tobacco Telehealth Telehealth Telehealth Platform: Telephone Location of provider rendering services: practice address Location of patient: address on file Patient Identification confirmed using: Name, : Yes Telehealth method: voice only Patient verbally consented to treatment: Yes Patient verbally consented to billing insurance company: Yes Patient informed of any privacy concerns related to visit: Yes Minutes spent on Phone/Video with Pt.: 22 Assessment & Plan Assessment & Plan (1) Obesity: Code(s): E66.9 - Obesity, unspecified Category: Medical Qualifiers: Obesity type: due to excess calories Obesity classification: adult class 1 (BMI 30 - 34.9) Serious obesity comorbidity presence: without serious comorbidity Body mass index: BMI 31.0-31.9 Qualified Code(s): E66.09 - Other obesity due to excess calories; Z68.31 - Body mass index [BMI] 31.0-31.9, adult Plan: 1. Plan for lap sleeve gastrectomy including upper GI endoscopy. All tests has been completed and reviewed and the patient is cleared for the surgery. ?If diaphragmatic or ventral hernias are present at time of surgery, these will be repaired laparoscopically as well. Risks and complications were discussed in detail including possible conversion to an open procedure, anastomotic leak, bleeding requiring transfusion, small bowel obstruction, , DVT and p ulmonary embolism, cardiac, or pulmonary complications, as joint terminal attack controller complications such as anastomotic ulcer, insufficient weight loss and vitamin deficiencies. I emphasized the importance of close follow-up, adherence to instructions and good communication. So far she has proven to be an excellent communicator and very compliant with all our directions accomplishing a great weight loss. I believe that she is an excellent candidate and she is ready. 2. The patient participated in a structured preoperative lifestyle intervention program supervised by a physician the 3 months preceding the surgical procedure. The lifestyle intervention included a structured nutritional plan with a specific daily protein intake goal, an exercise plan with a 2000 calorie burn weekly goal, weekly behavior modification guidance and completion of eight 1- hour online nutritional classes and passing successfully the corresponding quizzes. Adherence to preoperative care plan was demonstrated by completing an extensive preoperative work-up. Program participation was demonstrated by completing 6 visits with our medical team and by sharing weekly weight measurements weekly for 3 consecutive months via an approved body composition scale. Compliance to the lifestyle intervention was demonstrated by achieving a 15.2lbs weight-loss or 7.44% total body weight loss (TBWL). No medications were used to achieve this weight loss. In our published experience an over 7% preoperative TBWL, achieved by meeting the diet and exercise goals of our program improves surgical outcomes, reduces the potential for surgical complications, and predicts a statistically significant higher weight loss up to 6 years postoperatively. 3. Change nutritional plan to 2 protein shakes (2oz Premier shakes and 5oz almond milk), 2 Pure protein bars at 4-6pm and one meal (8 forks of protein and 8 forks of salad or vegetables) 4. Exercise: continue treadmill for 300-450 calories x7/wk 5. Continue to send me weight measurements weekly on Fridays
[2023-11-12 09:35] VITALS: BMI 29.6
== END 2023-11-12 09:43 | disposition home or self-care (01) ==
LOC: HO.HBS 08:14
PROVIDERS: Visit Provider Surgery
DX: E66.09 Other obesity due to excess calories (principal); Z68.31 Body mass index [BMI] 31.0-31.9, adult
CPT/HCPCS: 99213

== ENCOUNTER → 2023-11-12 08:14 | Outpatient (BNVA) | payer OTHER, SELFPAY | PROVIDERS: Visit Provider Surgery ==